=== PATIENT | male | born 1975 | race African-American/Black ===

== ENCOUNTER 2016-10-11 22:06 | Inpatient (IN) | payer SELFPAY ==
[~2016-10-11] VITALS: Ht 180.3 cm; Wt 128.0 kg
[~2016-10-11 22:06] MED LIST: CIPR-9 PO; IBUP800T23 PO; METR500T10 PO
[2016-10-11 22:07] VITALS: BP 172/83; PULSE 88; RESP 16; TEMP 99.3; O2SAT 99
--- NOTE | 2016-10-11 23:05 | PD ---
HPI Chief Complaint: Abdominal Pain Time Seen by Provider: 23:05 Travel History International Travel<30 days: No Contact w/Intl Traveler<30days: No Traveled to known affect area: No History of Present Illness HPI 41-year-old male came to the emergency room with history of right flank and right lower quadrant abdominal pain for past 2 weeks. Patient was very uncomfortable and was literally kneeling on the floor when I went to see him. He says his appetite has been down. He has this constant feeling to have a bowel movement but not much comes out. He has been diagnosed with diverticulitis in the past. No history of kidney stones. His vital signs were within acceptable limits. [facility] Past Medical History Narrative Medical List of his past medical, surgical, social and family history was reviewed from the nursing note. GERD: Yes (Feb 2016) Immunizations Current: Yes Tetanus Vaccination: < 5 Years Social History Alcohol Use: Yes (occas) Tobacco Use: Yes (vapor since november) Substance Use: No Allergies-Medications (Allergen,Severity, Reaction): Coded Allergies: No Known Allergies (Unverified , 10/11/16) Comments No known drug allergies. Reported Meds & Prescriptions Reported Meds & Active Scripts Active Narrative Medication List of his home medications reviewed from the nursing note. Review of Systems Except as stated in HPI: all other systems reviewed are Neg Physical Exam Narrative GENERAL: Awake, alert, significant distress SKIN: Focused skin assessment warm/dry. HEAD: Atraumatic. Normocephalic. EYES: Pupils equal and round. No scleral icterus. No injection or drainage. ENT: No nasal bleeding or discharge. Mucous membranes pink and moist. NECK: Trachea midline. No JVD. CARDIOVASCULAR: Regular rate and rhythm. No murmur appreciated. RESPIRATORY: No accessory muscle use. Clear to auscultation. Breath sounds equal bilaterally. GASTROINTESTINAL: Unable to examine his abdomen since patient was uncomfortable laying down. MUSCULOSKELETAL: No obvious deformities. No clubbing. No cyanosis. No edema. NEUROLOGICAL: Awake and alert. No obvious cranial nerve deficits. Motor grossly within normal limits. Normal speech. PSYCHIATRIC: Appropriate mood and affect; insight and judgment normal. Data Data Last Documented VS Vital Signs Date Time Temp Pulse Resp B/P Pulse Ox O2 Delivery O2 Flow Rate FiO2 10/11/16 22:07 99.3 88 16 172/83 99 Room Air Orders Complete Blood Count With Diff (10/11/16 23:13) Comprehensive Metabolic Panel (10/11/16 23:13) Lipase (10/11/16 23:13) Urinalysis - C+S If Indicated (10/11/16 23:) Ct Abd/Pel W/O Iv Contrast (10/11/16 23:13) Iv Access Insert/Monitor (10/11/16 23:13) Ecg Monitoring (10/11/16:) Oximetry (10/11/16:) Ondansetron Inj (Zofran Inj) (10/11/16 23:15) Sodium Chlor 0.9% 1000 Ml Inj (Ns 1000 M (10/11/16 23:13) Sodium Chloride 0.9% Flush (Ns Flush) (10/11/16 23:15) Morphine Inj (Morphine Inj) (10/11/16 23:15) Blood Culture (10/12/16 00:27) Ciprofloxacin 400 Mg Premix (Cipro 400 M (10/12/16 00:30) Metronidazole 500 Mg Inj (Flagyl 500 Mg (10/12/16 00:30) Admit Order (Ed Use Only) (10/12/16 00:47) Labs Laboratory Tests Test 10/11/16 23:25 White Blood Count 9.8 TH/MM3 Red Blood Count 4.30 MIL/MM3 Hemoglobin 13.0 GM/DL Hematocrit 38.7 % Mean Corpuscular Volume 90.0 FL Mean Corpuscular Hemoglobin 30.1 PG Mean Corpuscular Hemoglobin 33.5 % Concent Red Cell Distribution Width 13.3 % Platelet Count 239 TH/MM3 Mean Platelet Volume 9.2 FL Neutrophils (%) (Auto) 55.4 % Lymphocytes (%) (Auto) 34.1 % Monocytes (%) (Auto) 8.5 % Eosinophils (%) (Auto) 1.5 % Basophils (%) (Auto) 0.5 % Neutrophils # (Auto) 5.5 TH/MM3 Lymphocytes # (Auto) 3.4 TH/MM3 Monocytes # (Auto) 0.8 TH/MM3 Eosinophils # (Auto) 0.1 TH/MM3 Basophils # (Auto) 0.0 TH/MM3 CBC Comment DIFF FINAL Differential Comment Urine Color YELLOW Urine Turbidity CLEAR Urine pH 6.0 Urine Specific [place] 1.020 Urine Protein TRACE mg/dL Urine Glucose (UA) NEG mg/dL Urine Ketones NEG mg/dL Urine Occult Blood MOD Urine Nitrite NEG Urine Bilirubin NEG Urine Urobilinogen 2.0 MG/DL Urine Leukocyte Esterase NEG Urine RBC 14 /hpf Urine WBC 1 /hpf Urine Squamous Epithelial 1 /hpf Cells Urine Mucus FEW /lpf Microscopic Urinalysis Comment CULT NOT INDICATED Sodium Level 137 MEQ/L Potassium Level 3.6 MEQ/L Chloride Level 103 MEQ/L Carbon Dioxide Level 27.5 MEQ/L Anion Gap 7 MEQ/L Blood Urea Nitrogen 10 MG/DL Creatinine 1.13 MG/DL Estimat Glomerular Filtration 86 ML/MIN Rate Random Glucose 96 MG/DL Calcium Level 8.9 MG/DL Total Bilirubin 0.6 MG/DL Aspartate Amino Transf 19 U/L (AST/SGOT) Alanine Aminotransferase 26 U/L (ALT/SGPT) Alkaline Phosphatase 92 U/L Total Protein 8.0 GM/DL Albumin 3.4 GM/DL Lipase 81 U/L [facility] Medical Decision Making Medical Screen Exam Complete: Yes Emergency Medical Condition: Yes Medical Record Reviewed: Yes Differential Diagnosis Acute diverticulitis, renal colic, musculoskeletal pain, thoracic radiculopathy Narrative Course 12:45 AM blood test results of back and within acceptable limits. CT scan of his abdomen and pelvis is suggestive of acute diverticulitis with a small abscess. Patient was medicated for pain and IV fluid bolus given. Based on the CAT scan report I started him on IV ciprofloxacin and IV Flagyl. I have decided to admit him due to the abscess. I discussed this with the patient and his and they understand and agree. Procedures EKG Prior to Arrival: No Diagnosis Primary Impression: Acute diverticulitis Additional Impression: Colonic diverticular abscess Admitting Information Admitting Physician Requests: Admit Arnie Mccracken MD Oct 11, 2016 23:05 Admitting Physician Requests: it Arnie Mccracken MD Oct 11, 2016 23:05
[2016-10-11] MEDS ORDERED: SODIUM CHLOR 0.9% 1000 ML INJ 1,000 ML IV SCH (23:13)
[2016-10-11] MEDS ORDERED: MORPHINE SULFATE 8 MG/ML INJ IV PUSH ONE (23:15)
[2016-10-11] MEDS ORDERED: ONDANSETRON HCL 4 MG/2 ML VIAL IVP ONE (23:15)
[2016-10-11] MEDS ORDERED: SODIUM CHLORIDE 0.9% FLUSH 10 ML FLUSH IV FLUSH PRN (23:15)
[2016-10-11 23:52] LABS: BLOOD, URINE MOD (NEG); GLUCOSE,URINE NEG (NEG); KETONE, URINE NEG (NEG); MUCUS URINE FEW /lpf (OCC); NITRITE,URINE NEG (NEG); SQUAMOUS EPITHELIAL CELL URINE 1 /hpf (0-5); URINE COLOR YELLOW (YELLW/STRAW)
[2016-10-11 23:53] LABS: AUTOMATED NEUTROPHIL # 5.5 TH/MM3 (1.8-7.7); BASOPHIL % 0.5 % (0.0-2.0); EOSINOPHIL # 0.1 TH/MM3 (0-0.4); EOSINOPHIL % 1.5 % (0.0-4.0); HEMATOCRIT 38.7 % (39.0-51.0); HEMO FLAGS DIFF FINAL; LYMPH % 34.1 % (9.0-44.0); LYMPHOCYTE # 3.4 TH/MM3 (1.0-4.8); MEAN CORPUSCULAR HEMOGLOBIN 30.1 PG (27.0-34.0); MEAN CORPUSCULAR HGB CONC 33.5 % (32.0-36.0); MONO % 8.5 % (0.0-8.0); NEUT % 55.4 % (16.0-70.0); PLATELET COUNT 239 TH/MM3 (150-450); RED CELL DISTRIBUTION WIDTH 13.3 % (11.6-17.2); WHITE BLOOD COUNT 9.8 TH/MM3 (4.0-11.0)
[2016-10-11 23:56] LABS: COMMENT (UR) CULT NOT INDICATED; CULTURE IF INDICATED CULT NOT INDICATED
[2016-10-12] VITALS (8 sets, daily range): BP systolic 116–139; BP diastolic 62–71; PULSE 57–82; RESP 16–22; TEMP 97.2–98; O2SAT 92–99
[2016-10-12 00:07] LABS: ANION GAP 7 MEQ/L (5-15); AST (GOT) 19 U/L (15-37); BICARBONATE 27.5 MEQ/L (21.0-32.0); BLOOD UREA NITROGEN 10 MG/DL (7-18); CHLORIDE 103 MEQ/L (98-107); GLOMERULAR FILTRATION RATE 86 ML/MIN (>89); POTASSIUM 3.6 MEQ/L (3.5-5.1); SODIUM (NA) 137 MEQ/L (136-145)
[2016-10-12 00:08] LABS: ALT (GPT) 26 U/L (12-78)
[2016-10-12 00:10] LABS: ALKALINE PHOSPHATASE 92 U/L (45-117); TOTAL BILIRUBIN ADULT 0.6 MG/DL (0.2-1.0)
--- NOTE | 2016-10-12 00:16 | RADRPT ---
EXAM DATE/TIME: 10/11/2016 23:45 [place] COMPARISON: CT ABDOMEN & PELVIS W CONTRAST, March 02, 2016, 13:51. INDICATIONS : Low abdomen. ORAL CONTRAST: No oral contrast ingested. RADIATION DOSE: 22.40 CTDIvol (mGy) MEDICAL HISTORY : None SURGICAL HISTORY : None. ENCOUNTER: Initial ACUITY: 2 weeks PAIN SCALE: 8/10 LOCATION: Bilateral low abdomen TECHNIQUE: Volumetric scanning of the abdomen and pelvis was performed. Using automated exposure control and ad justment of the mA and/or kV according to patient size, radiation dose was kept as low as reasonably achievable to obtain optimal diagnostic quality images. DICOM format image data is available electro nically for review and comparison. FINDINGS: LOWER LUNGS: The visualized lower lungs are clear. LIVER: Homogeneous density without lesion. There is no dilation of the biliary tree. No calcified gallston es. SPLEEN: Normal size without lesion. PANCREAS: Within normal limits. KIDNEYS: Normal in size and shape. There is no mass, stone, or hydronephrosis. ADRENAL GLANDS: Within normal limits. VASCULAR: There is no aortic aneurysm. BOWEL/MESENTERY: High-grade diverticulitis seen at the level of the mid descending colon and with pericolonic inflamma tory changes involving the lateral margin of the adjacent left kidney. There is an approximately 16 x 24 x 23 mm intermediate signal intensity structure posterior to the descending colon seen on series 2 image 41 that on these noncontrast images I believe is a small developing fluid collection. It woul d not be safely drainable at this time. No free air is seen. ABDOMINAL WALL: Within normal limits. RETROPERITONEUM: There is no lymphadenopathy. BLADDER: No wall thickening or mass. REPRODUCTIVE: Within normal limits. INGUINAL: There is no lymphadenopathy or hernia. MUSCULOSKELETAL: Within normal limits for patient age. CONCLUSION: Severe acute diverticulitis at the level of the mid descending colon. Suspected small pericolonic abs cess developing, not drainable at this time. Medical management with close clinical surveillance narciso mmended. A followup CT of the abdomen and pelvis with intravenous and oral contrast is recommended in a few days, sooner if felt clinically indicated. The rest of the CT is within normal limits. Saravanan Ugalde MD on October 12, 2016 at 0:09 Board Certified Radiologist. This report was verified electronically.
[2016-10-12] MEDS ORDERED: metroNIDAZOLE 500 MG INJ 100 ML IV ONE (00:30)
[2016-10-12] MEDS ORDERED: CIPROFLOXACIN 400 MG PREMIX 200 ML IV ONE (00:30)
[2016-10-12] MEDS ORDERED: SODIUM CHLORIDE 0.9% FLUSH 10 ML FLUSH IV FLUSH PRN (01:00)
[2016-10-12] MEDS ORDERED: ONDANSETRON HCL 4 MG/2 ML VIAL IVP PRN (01:00)
[2016-10-12] MEDS ORDERED: NALOXONE HCL 0.4 MG/ML AMP IV PRN (01:00)
[2016-10-12] MEDS: SODIUM CHLOR 0.9% 1000 ML INJ 1,000 ML IV SCH ×4 (02:28→06:50)
--- NOTE | 2016-10-12 06:41 | HHI.HP ---
[facility] Service [facility] Primary Care Physician No Primary Care Physician Admission Diagnosis acute diverticulitis, diverticular abscess Diagnoses: Travel History International Travel<30 Days: No Contact w/Intl Traveler <30 Da: No Traveled to Known Affected Are: No History of Present Illness stomach pains for about 2 weeks, bilateral flank all the way to [facility] no fever no nausea no vomiting no diarrhea- but lose small stools no black or red color stool no blood in urine no buring or painj urination Review of Systems Except as stated in HPI: all other systems reviewed are Neg Past Family Social History Past Medical History diverticulosis Past Surgical History 1999 some kind of abdomen sx for a trauma when a big keigs of beer fell on abdomen Allergies: Coded Allergies: No Known Allergies (Unverified , 10/11/16) Family History mom- breast cancer , dm, htn, lipid dad- dm- diseased; htn, cva, Social History used to smoke cigarettes, quit about a year ago social drinker Physical Exam Vital Signs Vital Signs Date Time Temp Pulse Resp B/P Pulse Ox O2 Delivery O2 Flow Rate FiO2 10/12/16 02:44 68 16 116/67 99 Room Air 10/11/16 22:07 99.3 88 16 172/83 99 Room Air Physical Exam GENERAL: This is a well-nourished, well-developed patient, in no apparent distress. SKIN: No rashes, ecchymoses or lesions. Cool and dry. HEAD: Atraumatic. Normocephalic. No temporal or scalp tenderness. EYES: No scleral icterus. No injection or drainage. ENT: Nose without bleeding, purulent drainage or septal hematoma.Airway patent. NECK: Trachea midline. No JVD CARDIOVASCULAR: Regular rate and rhythm without murmurs, gallops, or rubs. RESPIRATORY: Clear to auscultation. Breath sounds equal bilaterally. No wheezes , rales, or rhonchi. GASTROINTESTINAL: Abdomen soft, tenderness diffusely at mid abdomen and epigastric, nondistended. . No guarding. MUSCULOSKELETAL: Extremities without clubbing, cyanosis, or edema. No calf tenderness. NEUROLOGICAL: Awake and alert. Motor and sensory grossly within normal limits. Normal speech. Laboratory Laboratory Tests Test 10/11/16 23:25 White Blood Count 9.8 Red Blood Count 4.30 Hemoglobin 13.0 Hematocrit 38.7 Mean Corpuscular Volume 90.0 Mean Corpuscular Hemoglobin 30.1 Mean Corpuscular Hemoglobin 33.5 Concent Red Cell Distribution Width 13.3 Platelet Count 239 Mean Platelet Volume 9.2 Neutrophils (%) (Auto) 55.4 Lymphocytes (%) (Auto) 34.1 Monocytes (%) (Auto) 8.5 Eosinophils (%) (Auto) 1.5 Basophils (%) (Auto) 0.5 Neutrophils # (Auto) 5.5 Lymphocytes # (Auto) 3.4 Monocytes # (Auto) 0.8 Eosinophils # (Auto) 0.1 Basophils # (Auto) 0.0 CBC Comment DIFF FINAL Differential Comment Urine Color YELLOW Urine Turbidity CLEAR Urine pH 6.0 Urine Specific [place] 1.020 Urine Protein TRACE Urine Glucose (UA) NEG Urine Ketones NEG Urine Occult Blood MOD Urine Nitrite NEG Urine Bilirubin NEG Urine Urobilinogen 2.0 Urine Leukocyte Esterase NEG Urine RBC 14 Urine WBC 1 Urine Squamous Epithelial 1 Cells Urine Mucus FEW Microscopic Urinalysis Comment CULT NOT INDICATED Sodium Level 137 Potassium Level 3.6 Chloride Level 103 Carbon Dioxide Level 27.5 Anion Gap 7 Blood Urea Nitrogen 10 Creatinine 1.13 Estimat Glomerular Filtration 86 Rate Random Glucose 96 Calcium Level 8.9 Total Bilirubin 0.6 Aspartate Amino Transf 19 (AST/SGOT) Alanine Aminotransferase 26 (ALT/SGPT) Alkaline Phosphatase 92 Total Protein 8.0 Albumin 3.4 Lipase 81 Date/Time Procedure Status Source Growth 10/12/16 00:46 Aerobic Blood Culture Received Blood Peripheral Pending 10/12/16 00:46 Anaerobic Blood Culture Received Blood Peripheral Pending Result Diagram: 10/11/16 2325 10/11/162324 Imaging Last 48 hours Impressions Abdomen/Pelvis CT 10/11/167 Signed Impressions: Service Date/Time: Tuesday, October 11, 2016 23:45 - CONCLUSION: Severe acute diverticulitis at the level of the mid descending colon. Suspected small pericolonic abscess developing, not drainable at this time. Medical management with close clinical surveillance recommended. A followup CT of the abdomen and pelvis with intravenous and oral contrast is recommended in a few days, sooner if felt clinically indicated. The rest of the CT is within normal limits. Saravanan Ugalde MD Assessment and Plan Assessment and Plan Impression: severe diverticulitis- with non drainable abscess on CT Plan: advance to clear liquid pain control with tramadol if pt can tolerate po, which he likely will, may be able to dc in pm iv cipro and flagyl for now case management to arrange for antibiotics, follow up clinic appointment so that he can get repeat ct in a few days/ week dvt prophylaxis with lovenox Discussed Condition With patient, ER MD, nursing staff Curry Matthew MD Oct 12, 2016 06:40
[2016-10-12] MEDS: metroNIDAZOLE 500 MG INJ 100 ML IV SCH ×3 (06:50→19:10)
[2016-10-12] MEDS ORDERED: traMADol HCL 50 MG TAB PO PRN (07:00)
[2016-10-12] MEDS: SODIUM CHLORIDE 0.9% FLUSH 10 ML FLUSH IV FLUSH SCH ×2 (09:00→20:43)
[2016-10-12] MEDS ORDERED: MORPHINE SULFATE 8 MG/ML INJ IV PUSH PRN (11:00)
[2016-10-12] MEDS: CIPROFLOXACIN 400 MG PREMIX 200 ML IV SCH ×2 (11:09→23:29)
--- NOTE | 2016-10-12 16:03 | HHI.PR ---
Addendum to Inpatient Note Addendum Reason: Additional Documentation Additional Information The pt complained of significant pain and pain meds were adjusted. He was continued on IV antibiotics and IVFs. He did OK on a clear liquid diet. If symptoms do not improve will consult GI vs GS. Will need repeat CT scan in a few days. Add PPI. Tremaine Friedman DO Oct 12, 2016 16:03
[2016-10-12] MEDS: PANTOPRAZOLE SODIUM 40 MG VIAL IV PUSH SCH (17:22)
[2016-10-12] MEDS: HYDROmorphone HCL PF 1 MG/ML VIAL IV PUSH PRN ×2 (17:24→20:47)
[2016-10-13] VITALS: BP 120/68; PULSE 90; RESP 20; TEMP 99.5; O2SAT 95
[2016-10-13] MEDS: metroNIDAZOLE 500 MG INJ 100 ML IV SCH ×3 (03:38→20:21)
[2016-10-13 04:00] VITALS: BP 129/70; PULSE 64; RESP 19; TEMP 97.7; O2SAT 95
[2016-10-13 05:41] LABS: AUTOMATED NEUTROPHIL # 4.1 TH/MM3 (1.8-7.7); BASOPHIL % 0.6 % (0.0-2.0); EOSINOPHIL # 0.2 TH/MM3 (0-0.4); EOSINOPHIL % 2.8 % (0.0-4.0); HEMATOCRIT 36.4 % (39.0-51.0); HEMO FLAGS DIFF FINAL; LYMPH % 32.3 % (9.0-44.0); LYMPHOCYTE # 2.4 TH/MM3 (1.0-4.8); MEAN CELL VOLUME 90.8 FL (80.0-100.0); MEAN CORPUSCULAR HEMOGLOBIN 30.1 PG (27.0-34.0); MEAN CORPUSCULAR HGB CONC 33.1 % (32.0-36.0); MONO % 9.2 % (0.0-8.0); NEUT % 55.1 % (16.0-70.0); PLATELET COUNT 254 TH/MM3 (150-450); RED BLOOD COUNT 4.01 MIL/MM3 (4.50-5.90); RED CELL DISTRIBUTION WIDTH 13.6 % (11.6-17.2); WHITE BLOOD COUNT 7.4 TH/MM3 (4.0-11.0)
[2016-10-13 06:08] LABS: BICARBONATE 29.8 MEQ/L (21.0-32.0); POTASSIUM 3.9 MEQ/L (3.5-5.1)
[2016-10-13] MEDS: SODIUM CHLOR 0.9% 1000 ML INJ 1,000 ML IV SCH ×2 (06:49→12:35)
[2016-10-13 08:00] VITALS: BP 127/60; PULSE 65; PULSE 70; RESP 18; TEMP 96.8; O2SAT 95
[2016-10-13] MEDS: SODIUM CHLORIDE 0.9% FLUSH 10 ML FLUSH IV FLUSH SCH ×2 (09:00→20:00)
[2016-10-13] MEDS: CIPROFLOXACIN 400 MG PREMIX 200 ML IV SCH ×2 (11:01→23:57)
[2016-10-13 12:00] VITALS: BP 146/72; PULSE 70; RESP 18; TEMP 97.4; O2SAT 96
[2016-10-13] MEDS: HYDROmorphone HCL PF 1 MG/ML VIAL IV PUSH PRN (12:34)
--- NOTE | 2016-10-13 15:24 | HHI.PR ---
Subjective Remarks The patient says his pain ranges from a 7 to a 9 out of 10. He says the pain medications only take the edge off. He is tolerating a clear liquid diet. He says he has had a bout of diverticulitis in February of last year. He had questions pertaining to walk out of the diet he should be on to avoid diverticulitis. He has been having gas but has not been having any bowel movements. Objective Vitals Vital Signs Date Time Temp Pulse Resp B/P Pulse Ox O2 Delivery O2 Flow Rate FiO2 10/13/16 12:00 97.4 70 18 146/72 96 10/13/16 12:00 97.4 70 18 146/72 96 10/13/16 08:00 96.8 70 18 127/60 95 10/13/16 08:00 65 10/13/16 04:00 97.7 64 19 129/70 95 10/13/16 00:00 99.5 90 20 120/68 95 10/12/16 22:00 68 10/12/16 20:00 97.5 72 22 129/69 92 10/12/16 16:00 98.0 67 17 139/71 96 I/O 10/12/16 10/12/16 10/12/16 10/13/16 10/13/16 10/13/16 07:00 15:00 23:00 07:00 15:00 23:00 Intake Total 312 ml 360 ml 966 ml 1171 ml 720 ml Balance 312 ml 360 ml 966 ml 1171 ml 720 ml Intake Oral 360 ml 480 ml 480 ml 720 ml IV Total 312 ml 486 ml 691 ml # Voids 2 1 2 4 # Bowel Movements 0 0 Result Diagram: 10/13/16 0345 10/13/16 0345 Imaging Last Impressions Abdomen/Pelvis CT 10/11/16 3333 Signed Impressions: Service Date/Time: Tuesday, October 11, 2016 23:45 - CONCLUSION: Severe acute diverticulitis at the level of the mid descending colon. Suspected small pericolonic abscess developing, not drainable at this time. Medical management with close clinical surveillance recommended. A followup CT of the abdomen and pelvis with intravenous and oral contrast is recommended in a few days, sooner if felt clinically indicated. The rest of the CT is within normal limits. Saravanan Ugalde MD Objective Remarks GENERAL: This is a well-nourished, well-developed patient, in no apparent distress. SKIN: No rashes, ecchymoses or lesions. Cool and dry. HEAD: Atraumatic. Normocephalic. No temporal or scalp tenderness. EYES: No scleral icterus. No injection or drainage. ENT: Nose without bleeding, purulent drainage or septal hematoma.Airway patent. NECK: Trachea midline. No JVD CARDIOVASCULAR: Regular rate and rhythm without murmurs, gallops, or rubs. RESPIRATORY: Clear to auscultation. Breath sounds equal bilaterally. No wheezes , rales, or rhonchi. GASTROINTESTINAL: Abdomen soft, tenderness on the left, nondistended. . No guarding. MUSCULOSKELETAL: Extremities without clubbing, cyanosis, or edema. No calf tenderness. NEUROLOGICAL: Awake and alert. Motor and sensory grossly within normal limits. Normal speech. PSYCH: Mood and affect appropriate. Medications and IVs Current Medications Medications (Trade) Dose Ordered Sig/Julio Route Start Time Stop Time Status Last Admin (NS 1000 ml Inj) 1,000 ml @ 100 mls/hr Q10H IV 10/12/16 00:49 10/13/16 12:35 (NS Flush) 2 ml UNSCH PRN IV FLUSH 10/12/16 01:00 (NS Flush) 2 ml BID IV FLUSH 10/12/16 09:00 (Zofran Inj) 4 mg Q6H PRN IVP 10/12/16 01:00 Naloxone HCl 0.4 mg 0.4 mg UNSCH PRN IV 10/12/16 01:00 (Cipro 400 Mg Premix) 200 ml @ 200 mls/hr Q12H IV 10/12/16 11:00 10/13/16 11:01 (Roxicodone) 5 mg Q4H PRN PO 10/12/16 11:00 Oxycodone HCl 10 mg 10 mg Q4H PRN PO 10/12/16 11:00 10/13/16 09:19 (Flagyl 500 Mg Inj) 100 ml @ 100 mls/hr Q8H IV 10/12/16 20:00 10/13/16 12:34 (Dilaudid Pf Inj) 0.5 mg Q4H PRN IV PUSH 10/12/16 15:15 10/13/16 12:34 (Protonix Inj) 40 mg Q24H IV PUSH 10/12/16 16:00 10/12/16 17:22 A/P Assessment and Plan Severe diverticulitis CT of the abdomen showed: severe acute diverticulitis at the level of the mid descending colon; Suspected small pericolonic abscess developing, not drainable at this time. Pain has not improved. He has had diverticulitis in February. - continue IV Cipro and Flagyl. - oral pain meds with IV Dilaudid for breakthrough. - antiemetics as needed. - IVFs. - clear liquid diet. - GI consult requested. - continue IV PPI. Anemia Likely dilutional. - monitor as needed. PPx: Lovenox Discharge Planning Awaiting clinical improvement. Tremaine Friedman DO Oct 13, 2016 15:24
[2016-10-13] MEDS: PANTOPRAZOLE SODIUM 40 MG VIAL IV PUSH SCH (15:27)
[2016-10-13 16:00] VITALS: BP 130/62; PULSE 58; RESP 18; TEMP 97.6; O2SAT 98
[2016-10-13] MEDS: SODIUM CHLORIDE 0.65% NASAL SPRAY 45 ML BTL EACH NARE PRN (17:45)
[2016-10-13] MEDS ORDERED: HYDROmorphone HCL PF 1 MG/ML VIAL IV PUSH PRN (19:15)
[2016-10-13 20:00] VITALS: BP 128/63; PULSE 66; RESP 18; TEMP 99.3; O2SAT 95
--- NOTE | 2016-10-13 20:33 | PD.CONS ---
HPI History of Present Illness This is a 41 year old male patient who has had 2 week history of severe LLQ crampy pain that he tried to manage as outpatient but eventually needed to come to hospital for pain relief. CT scan showed diverticulitis in descending colon with a possible small diverticular abscess. WBC has been normal and he is on Cipro and Flagyl. He denies any bloody stools. Not moving bowels since he came to hospital. He reports prior episode of diverticulitis in February last year. ROS: no headache, earache, sore throat, chest pain, sob, leg pain, fever. No rash. Otherwise complete ros is negative. []. PFSH Past Medical History diverticulosis Past Surgical History 1999 some kind of abdomen sx for a trauma when a big keg of beer fell on abdomen Coded Allergies: No Known Allergies (Unverified , 10/11/16) Medications Current Medications Medications (Trade) Dose Ordered Sig/Julio Route Start Time Stop Time Status Last Admin (NS 1000 ml Inj) 1,000 ml @ 100 mls/hr Q10H IV 10/12/16 00:49 10/13/16 12:35 (NS Flush) 2 ml UNSCH PRN IV FLUSH 10/12/16 01:00 (NS Flush) 2 ml BID IV FLUSH 10/12/16 09:00 (Zofran Inj) 4 mg Q6H PRN IVP 10/12/16 01:00 Naloxone HCl 0.4 mg 0.4 mg UNSCH PRN IV 10/12/16 01:00 (Cipro 400 Mg Premix) 200 ml @ 200 mls/hr Q12H IV 10/12/16 11:00 10/13/16 11:01 (Roxicodone) 5 mg Q4H PRN PO 10/12/16 11:00 Oxycodone HCl 10 mg 10 mg Q4H PRN PO 10/12/16 11:00 10/13/16 18:31 (Flagyl 500 Mg Inj) 100 ml @ 100 mls/hr Q8H IV 10/12/16 20:00 10/13/16 20:21 (Protonix Inj) 40 mg Q24H IV PUSH 10/12/16 16:00 10/13/16 15:27 (Dilaudid Pf Inj) 1 mg Q4H PRN IV PUSH 10/13/16 19:15 ([place]) 2 spray Q4H PRN EACH NARE 10/13/16 15:30 10/13/16 17:45 Family History mom- breast cancer , dm, htn, lipid dad- dm- diseased; htn, cva, Social History used to smoke cigarettes, quit about a year ago social drinker GI Exam Vitals I&O Vital Signs Date Time Temp Pulse Resp B/P Pulse Ox O2 Delivery O2 Flow Rate FiO2 10/13/16 20:00 99.3 66 18 128/63 95 10/13/16 16:00 97.6 58 18 130/62 98 10/13/16 12:00 97.4 70 18 146/72 96 10/13/16 12:00 97.4 70 18 146/72 96 10/13/16 08:00 96.8 70 18 127/60 95 10/13/16 08:00 65 10/13/16 04:00 97.7 64 19 129/70 95 10/13/16 00:00 99.5 90 20 120/68 95 10/12/16 22:00 68 I/O 10/12/16 10/12/16 10/12/16 10/13/16 10/13/16 10/13/16 07:00 15:00 23:00 07:00 15:00 23:00 Intake Total 312 ml 360 ml 966 ml 1171 ml 1559 ml Balance 312 ml 360 ml 966 ml 1171 ml 1559 ml Intake Oral 360 ml 480 ml 480 ml 720 ml IV Total 312 ml 486 ml 691 ml 839 ml # Voids 2 1 2 4 # Bowel Movements 0 0 Laboratory Test 10/13/16 03:45 White Blood Count 7.4 TH/MM3 Red Blood Count 4.01 MIL/MM3 Hemoglobin 12.1 GM/DL Hematocrit 36.4 % Mean Corpuscular Volume 90.8 FL Mean Corpuscular Hemoglobin 30.1 PG Mean Corpuscular Hemoglobin 33.1 % Concent Red Cell Distribution Width 13.6 % Platelet Count 254 TH/MM3 Mean Platelet Volume 9.1 FL Neutrophils (%) (Auto) 55.1 % Lymphocytes (%) (Auto) 32.3 % Monocytes (%) (Auto) 9.2 % Eosinophils (%) (Auto) 2.8 % Basophils (%) (Auto) 0.6 % Neutrophils # (Auto) 4.1 TH/MM3 Lymphocytes # (Auto) 2.4 TH/MM3 Monocytes # (Auto) 0.7 TH/MM3 Eosinophils # (Auto) 0.2 TH/MM3 Basophils # (Auto) 0.0 TH/MM3 CBC Comment DIFF FINAL Differential Comment Sodium Level 137 MEQ/L Potassium Level 3.9 MEQ/L Chloride Level 101 MEQ/L Carbon Dioxide Level 29.8 MEQ/L Anion Gap 6 MEQ/L Blood Urea Nitrogen 9 MG/DL Creatinine 1.21 MG/DL Estimat Glomerular Filtration 80 ML/MIN Rate Random Glucose 92 MG/DL Calcium Level 8.7 MG/DL Date/Time Procedure Status Source Growth 10/12/16 00:46 Aerobic Blood Culture - Preliminary Resulted Blood Peripheral NO GROWTH IN 1 DAY 10/12/16 00:46 Anaerobic Blood Culture - Preliminary Resulted Blood Peripheral NO GROWTH IN 1 DAY Physical Examination HEENT: Pupils round and reactive to light; normocephalic; atraumatic; no jaundice. Throat is clear. NECK: Neck is supple, no JVD, no lymphadenopathy. CHEST: Chest is clear to auscultation and percussion. CARDIAC: Regular rate and rhythm with no murmur gallop or rubs. ABDOMEN: Soft, nondistended, tender LLQ; no hepatosplenomegaly; bowel sounds are present in all four quadrants. EXTREMITIES: No clubbing, cyanosis, or edema. SKIN: Normal; no rash; no jaundice. RETINA SUBSPECIALIST: No focal deficits; alert and oriented times three. Assessment and Plan Plan Imp: Acute diverticulitis with possible early abscess on unenhanced CT Previous history of diverticulitis and altered bowel habits. Plan: Repeat CT scan abdomen and pelvis tomorrow with IV and PO contrast. Advised to take metamucil daily after discharge to prevent recurrent diverticulitis in the future. Andrea Kee MD Oct 13, 2016 20:33
[2016-10-14] VITALS: BP 122/64; PULSE 59; RESP 18; TEMP 97.5; O2SAT 96
[2016-10-14] MEDS: metroNIDAZOLE 500 MG INJ 100 ML IV SCH ×3 (03:23→21:45)
[2016-10-14] MEDS: SODIUM CHLOR 0.9% 1000 ML INJ 1,000 ML IV SCH ×3 (03:23→21:44)
[2016-10-14 04:00] VITALS: BP 115/55; PULSE 57; RESP 18; TEMP 97.8; O2SAT 95
[2016-10-14] MEDS ORDERED: DIATRIZOATE MEGLUM/DIATRIZOATE SOD 9 ML CUP PO ONE (07:45)
[2016-10-14 08:00] VITALS: BP 127/58; PULSE 52; RESP 18; TEMP 97.9; O2SAT 97
[2016-10-14] MEDS: SODIUM CHLORIDE 0.9% FLUSH 10 ML FLUSH IV FLUSH SCH ×2 (08:37→21:00)
[2016-10-14] MEDS: CIPROFLOXACIN 400 MG PREMIX 200 ML IV SCH ×2 (11:03→21:44)
[2016-10-14] MEDS ORDERED: OXYC-392 PO (11:07)
--- NOTE | 2016-10-14 11:12 | HHI.PR ---
Subjective Remarks The patient said that overall he was feeling better. He did say that he was tolerating his clear liquid diet without increased abdominal pain. He was expecting to get the CAT scan done soon. Discussed with nursing. Objective Vitals Vital Signs Date Time Temp Pulse Resp B/P Pulse Ox O2 Delivery O2 Flow Rate FiO2 10/14/16 08:00 97.9 52 18 127/58 97 10/14/16 04:00 97.8 57 18 115/55 95 10/14/16 00:57 18 10/14/16 00:00 97.5 59 18 122/64 96 10/13/16 20:00 99.3 66 18 128/63 95 10/13/16 16:00 97.6 58 18 130/62 98 10/13/16 12:00 97.4 70 18 146/72 96 10/13/16 12:00 97.4 70 18 146/72 96 I/O 10/13/16 10/13/16 10/13/16 10/14/16 10/14/16 10/14/16 07:00 15:00 23:00 07:00 15:00 23:00 Intake Total 1171 ml 1559 ml 420 ml 480 ml Balance 1171 ml 1559 ml 420 ml 480 ml Intake Oral 480 ml 720 ml 420 ml 480 ml IV Total 691 ml 839 ml # Voids 2 4 2 5 # Bowel Movements 0 0 0 Result Diagram: 10/13/16 0345 10/13/16 0345 Imaging Last Impressions Abdomen/Pelvis CT 10/11/16 2313 Signed Impressions: Service Date/Time: Tuesday, October 11, 2016 23:45 - CONCLUSION: Severe acute diverticulitis at the level of the mid descending colon. Suspected small pericolonic abscess developing, not drainable at this time. Medical management with close clinical surveillance recommended. A followup CT of the abdomen and pelvis with intravenous and oral contrast is recommended in a few days, sooner if felt clinically indicated. The rest of the CT is within normal limits. Saravanan Ugalde MD Objective Remarks GENERAL: This is a well-nourished, well-developed patient, in no apparent distress. SKIN: No rashes, ecchymoses or lesions. Cool and dry. HEAD: Atraumatic. Normocephalic. No temporal or scalp tenderness. EYES: No scleral icterus. No injection or drainage. ENT: Nose without bleeding, purulent drainage or septal hematoma.Airway patent. NECK: Trachea midline. No JVD CARDIOVASCULAR: Regular rate and rhythm without murmurs, gallops, or rubs. RESPIRATORY: Clear to auscultation. Breath sounds equal bilaterally. No wheezes , rales, or rhonchi. GASTROINTESTINAL: Abdomen soft, tenderness on the left, nondistended. No guarding. MUSCULOSKELETAL: Extremities without clubbing, cyanosis, or edema. No calf tenderness. NEUROLOGICAL: Awake and alert. Motor and sensory grossly within normal limits. Normal speech. PSYCH: Mood and affect appropriate. Medications and IVs Current Medications Medications (Trade) Dose Ordered Sig/Julio Route Start Time Stop Time Status Last Admin (NS 1000 ml Inj) 1,000 ml @ 100 mls/hr Q10H IV 10/12/16 00:49 10/14/16 11:03 (NS Flush) 2 ml UNSCH PRN IV FLUSH 10/12/16 01:00 (NS Flush) 2 ml BID IV FLUSH 10/12/16 09:00 (Zofran Inj) 4 mg Q6H PRN IVP 10/12/16 01:00 Naloxone HCl 0.4 mg 0.4 mg UNSCH PRN IV 10/12/16 01:00 (Cipro 400 Mg Premix) 200 ml @ 200 mls/hr Q12H IV 10/12/16 11:00 10/14/16 11:03 (Roxicodone) 5 mg Q4H PRN PO 10/12/16 11:00 Oxycodone HCl 10 mg 10 mg Q4H PRN PO 10/12/16 11:00 10/14/16 08:40 (Flagyl 500 Mg Inj) 100 ml @ 100 mls/hr Q8H IV 10/12/16 20:00 10/14/16 11:03 (Protonix Inj) 40 mg Q24H IV PUSH 10/12/16 16:00 10/13/16 15:27 (Inkom Robinson [place]) 2 spray Q4H PRN EACH NARE 10/13/16 15:30 10/13/16 17:45 (Flonase Robinson Spr) 2 spray DAILY EACH NARE 10/14/16 11:15 (Dilaudid Pf Inj) 0.5 mg Q4H PRN IV PUSH 10/14/16 11:15 A/P Assessment and Plan Severe diverticulitis CT of the abdomen showed: severe acute diverticulitis at the level of the mid descending colon; Suspected small pericolonic abscess developing, not drainable at this time. Pain has not improved. He has had diverticulitis in February. Appreciate GI consultation. - continue IV Cipro and Flagyl. - oral pain meds with IV Dilaudid for breakthrough. - antiemetics as needed. - IVFs. - clear liquid diet. - repeat CT per GI. - continue IV PPI. Anemia Likely dilutional. - monitor as needed. PPx: Lovenox Discharge Planning Awaiting repeat CT. Possible d/c later today or tomorrow. Tremaine Friedman DO Oct 14, 2016 11:12
[2016-10-14] MEDS ORDERED: HYDROmorphone HCL PF 1 MG/ML VIAL IV PUSH PRN (11:15)
[2016-10-14 12:00] VITALS: BP 146/68; PULSE 52; RESP 18; TEMP 95.9; O2SAT 98
[2016-10-14] MEDS ORDERED: IOHEXOL 350 MG/ML 10 ML VIAL (for RAD DIAG) IV ONE (14:31)
--- NOTE | 2016-10-14 14:55 | RADRPT ---
EXAM DATE/TIME: 10/14/2016 14:16 [facility] COMPARISON: CT ABDOMEN & PELVIS W/O CONTRAST, October 11, 2016, 23:45. INDICATIONS : Evaluate for diffuse abdominal pain. IV CONTRAST: 85 cc Omnipaque 350 (iohexol) IV ORAL CONTRAST: Prescribed oral contrast ingested. RADIATION DOSE: 16.77 CTDIvol (mGy) MEDICAL HISTORY : Diverticulitis. SURGICAL HISTORY : None. ENCOUNTER: Initial ACUITY: 1 day PAIN SCALE: 9/10 LOCATION: Bilateral lower quadrant TECHNIQUE: Volumetric scanning of the abdomen and pelvis was performed. Using automated exposure control and ad justment of the mA and/or kV according to patient size, radiation dose was kept as low as reasonably achievable to obtain optimal diagnostic quality images. DICOM format image data is available electro nically for review and comparison. FINDINGS: CT Abdomen: The previously seen diverticulitis involving descending colon which involves almost 4.4 c m of the colonic wall has not changed with extension of the inflammatory process into the Gerota's fa scia on the left side and part of the inflammatory process appears nodular, however there is no evide nce for abscess at this time. The liver, spleen, pancreas, kidneys, adrenals are unremarkable. There is no evidence for any appreciable pathological adenopathy, free fluid, or bowel obstruction. CT pelvis: There is no evidence for mass, abscess formation, or any significant adenopathy within the pelvis. The prostate gland is inhomogeneous and measures 3.2 x 4.1 cm in AP and transverse diameters and nonspecific. CONCLUSION: No appreciable change in descending colon acute diverticulitis. Cee Angel MD on October 14, 2016 at 14:48 Board Certified Radiologist. This report was verified electronically.
[2016-10-14 16:00] VITALS: BP 145/69; PULSE 50; RESP 18; TEMP 96.3; O2SAT 100
--- NOTE | 2016-10-14 16:43 | HHI.GIFU ---
Subjective Remarks Pt sitting in bed, on phone. NO new complaints pain the same. No BM. Objective Vitals I&O Vital Signs Date Time Temp Pulse Resp B/P Pulse Ox O2 Delivery O2 Flow Rate FiO2 10/14/16 16:00 96.3 50 18 145/69 100 10/14/16 12:00 95.9 52 18 146/68 98 10/14/16 08:00 97.9 52 18 127/58 97 10/14/16 04:00 97.8 57 18 115/55 95 10/14/16 00:57 18 10/14/16 00:00 97.5 59 18 122/64 96 10/13/16 20:00 99.3 66 18 128/63 95 I/O 10/13/16 10/13/16 10/13/16 10/14/16 10/14/16 10/14/16 06:59 14:59 22:59 06:59 14:59 22:59 Intake Total 1171 ml 1559 ml 420 ml 480 ml 440 ml Balance 1171 ml 1559 ml 420 ml 480 ml 440 ml Intake Oral 480 ml 720 ml 420 ml 480 ml 440 ml IV Total 691 ml 839 ml # Voids 2 4 2 5 4 # Bowel Movements 0 0 0 0 Laboratory Date/Time Procedure Status Source Growth 10/12/16 00:46 Aerobic Blood Culture - Preliminary Resulted Blood Peripheral NO GROWTH IN 2 DAYS 10/12/16 00:46 Anaerobic Blood Culture - Preliminary Resulted Blood Peripheral NO GROWTH IN 2 DAYS Imaging Last Impressions Abdomen/Pelvis CT 10/14/16 0000 Signed Impressions: Service Date/Time: October 14:16 - CONCLUSION: No appreciable change in descending colon acute diverticulitis. Cee Angel MD Physical Exam HEENT: PERRL; normocephalic; atraumatic; no jaundice. CHEST: CTA CARDIAC: RRR ABDOMEN: Soft, nondistended, LLQ TTP; no hepatosplenomegaly; bowel sounds are present in all four quadrants. EXTREMITIES: No clubbing, cyanosis, or edema. SKIN: Normal; no rash; no jaundice. [employer] HEL[employer]: No focal deficits; alert and oriented times three. Assessment and Plan Plan ASSESSMENT - Acute diverticulitis with possible early abscess on unenhanced CT .Previous history of diverticulitis and altered bowel habits. repeat CT 10-14-16--> no appreciable change in descending colon acute diverticulitis, no evidence for abscess at this time Plan: - reg diet - miralax BID - supportive care - metamucil after improvement to prevent future attacks diverticulitis This pt seen by myself and Dr Kee and this note is written on his behalf Dayana Vallejo Oct 14, 2016 16:43
[2016-10-14] MEDS: SENNOSIDES 8.6 MG TAB PO SCH (17:06)
[2016-10-14] MEDS: FLUTICASONE PROPIONATE 50 MCG/ACT 16 GM NASAL SPRAY EACH NARE SCH (17:15)
[2016-10-14] MEDS: PANTOPRAZOLE SODIUM 40 MG VIAL IV PUSH SCH (17:16)
[2016-10-14 20:00] VITALS: BP 150/69; PULSE 53; RESP 20; TEMP 97.2; O2SAT 98
[2016-10-14] MEDS: POLYETHYLENE GLYCOL 17 GM PKG PO SCH (21:00)
[2016-10-14] MEDS: DOCUSATE SODIUM 100 MG CAP PO SCH (21:45)
[2016-10-15] VITALS: BP 134/63; PULSE 57; RESP 20; TEMP 97.1; O2SAT 97
[2016-10-15] MEDS: metroNIDAZOLE 500 MG INJ 100 ML IV SCH (03:05)
[2016-10-15 04:00] VITALS: BP 126/73; PULSE 47; RESP 18; TEMP 96.4; O2SAT 98
[2016-10-15 08:00] VITALS: BP 134/63; PULSE 46; RESP 17; TEMP 96.9; O2SAT 97
[2016-10-15] MEDS: SODIUM CHLOR 0.9% 1000 ML INJ 1,000 ML IV SCH (08:46)
[2016-10-15] MEDS: SODIUM CHLORIDE 0.65% NASAL SPRAY 45 ML BTL EACH NARE PRN (08:47)
[2016-10-15] MEDS: SODIUM CHLORIDE 0.9% FLUSH 10 ML FLUSH IV FLUSH SCH (08:48)
[2016-10-15] MEDS: DOCUSATE SODIUM 100 MG CAP PO SCH (08:48)
[2016-10-15] MEDS: FLUTICASONE PROPIONATE 50 MCG/ACT 16 GM NASAL SPRAY EACH NARE SCH (08:48)
[2016-10-15] MEDS: POLYETHYLENE GLYCOL 17 GM PKG PO SCH (08:48)
[2016-10-15] MEDS: SENNOSIDES 8.6 MG TAB PO SCH (08:49)
[2016-10-15] MEDS ORDERED: CIPR500T2 PO (10:29)
[2016-10-15] MEDS ORDERED: METR-1 PO (10:29)
--- NOTE | 2016-10-15 10:31 | HHI.DCPOC ---
Discharge Care Plan Diagnosis: (1) Acute diverticulitis (2) Colonic diverticular abscess Goals to Promote Your Health * To prevent worsening of your condition and complications * To maintain your health at the optimal level Directions to Meet Your Goals Take your medications as prescribed Follow your dietary instruction Follow activity as directed Keep your appointments as scheduled Take your immunizations and boosters as scheduled If your symptoms worsen call your PCP, if no PCP go to Urgent Care Center or Emergency Room Smoking is Dangerous to Your Health. Avoid second hand smoke Call the 24-hour hour crisis hotline for domestic abuse at Tremaine Friedman DO Oct 15, 2016 10:31
--- NOTE | 2016-10-15 10:38 | HHI.DS ---
Discharge Summary Admission Date Oct 12, 2016 at 16:00 Discharge Date: Oct 15, 2016 Admitting Diagnosis acute diverticulitis, diverticular abscess (1) Acute diverticulitis ICD Code: K57.92 Diagnosis: Principal (2) Colonic diverticular abscess ICD Code: K57.20 Procedures None Brief History - From Admission stomach pains for about 2 weeks, bilateral flank all the way to [facility] no fever no nausea no vomiting no diarrhea- but lose small stools no black or red color stool no blood in urine no buring or painj urination CBC/BMP: 10/13/16 0345 10/13/16 0345 Significant Findings Laboratory Tests Test 10/13/16 03:45 Red Blood Count 4.01 MIL/MM3 (4.50-5.90) Hemoglobin 12.1 GM/DL (13.0-17.0) Hematocrit 36.4 % (39.0-51.0) Monocytes (%) (Auto) 9.2 % (0.0-8.0) Estimat Glomerular Filtration 80 ML/MIN (>89) Rate Imaging Last Impressions Abdomen/Pelvis CT 10/14/16 0000 Signed Impressions: Service Date/Time: , October 14, 2016 14:16 - CONCLUSION: No appreciable change in descending colon acute diverticulitis. Cee Angel MD PE at Discharge GENERAL: This is a well-nourished, well-developed patient, in no apparent distress. SKIN: No rashes, ecchymoses or lesions. Cool and dry. HEAD: Atraumatic. Normocephalic. No temporal or scalp tenderness. EYES: No scleral icterus. No injection or drainage. ENT: Nose without bleeding, purulent drainage or septal hematoma.Airway patent. NECK: Trachea midline. No JVD CARDIOVASCULAR: Regular rate and rhythm without murmurs, gallops, or rubs. RESPIRATORY: Clear to auscultation. Breath sounds equal bilaterally. No wheezes , rales, or rhonchi. GASTROINTESTINAL: Abdomen soft, tenderness on the left, nondistended. No guarding. MUSCULOSKELETAL: Extremities without clubbing, cyanosis, or edema. No calf tenderness. NEUROLOGICAL: Awake and alert. Motor and sensory grossly within normal limits. Normal speech. PSYCH: Mood and affect appropriate. Pt update on day of discharge The pt said his pain has improved. He was tolerating a diet. He had a bowel movement, no blood was noted. Breathing comfortably. Discussed with nursing and GI. Hospital Course Severe diverticulitis CT of the abdomen showed: severe acute diverticulitis at the level of the mid descending colon; Suspected small pericolonic abscess developing, not drainable at this time. Pain has not improved. He has also had diverticulitis in February of last year. GI was consulted. He was continued on IV Cipro and Flagyl. He will complete a 10 day course of antibiotics. He received oral pain meds with IV Dilaudid for breakthrough. He received antiemetics as needed. He received IVFs and a PPI. Repeat CT without evidence for abscess. He was starte on a clear liquid diet, which was advanced to a low residue diet. He will follow up with GI as an outpt. He will need a colonoscopy. He should take Metamucil and adhere to a diverticulitis diet. Pt Condition on Discharge: Good Discharge Disposition: Discharge Home Discharge Time: <= 30 minutes Discharge Instructions DIET: Follow Instructions for: Diverticulitis Diet, Low Residue Diet Activities you can perform: Weight Bearing as Joel Follow up Referrals: Gastroenterology - 2 Weeks @ [facility] G[facility]enterology - 2 Weeks @ [facility] with Andrea Kee MD PCP Follow-up - 1 Week New Medications: Ciprofloxacin (Ciprofloxacin) 500 Mg Tab 500 MG PO BID Infection #14 Ref 0 TAB Metronidazole (Flagyl) 500 Mg Tab 500 MG PO TID Infection #21 Ref 0 TAB Oxycodone (Oxycodone) 5 Mg Tab 5 MG PO Q4H PRN pain #20 TAB Tremaine Friedman DO Oct 15, 2016 10:38
[2016-10-15 10:56] VITALS: PULSE 52
[2016-10-15] MEDS ORDERED: metroNIDAZOLE 500 MG TAB PO SCH (14:00)
[2016-10-15] MEDS ORDERED: CIPROFLOXACIN 500 MG TAB PO SCH (21:00)
== END 2016-10-15 11:37 | disposition home or self-care (01) | DRG 392 ==
LOC: NEPE 22:06 → NEDA 10-12 00:48 → INTOOBSV 10-12 00:48 → N07A 10-12 06:26 → OBSVTOIN 10-12 16:00
PROVIDERS: ADMIT Hospitalist; ATTEND Hospitalist
DX: K57.20 Diverticulitis of large intestine with perforation and abscess without bleeding (principal); F17.290 Nicotine dependence, other tobacco product, uncomplicated; K21.9 Gastro-esophageal reflux disease without esophagitis
CPT/HCPCS: 74176; 74177; 80048; 80053; 81001; 83690; 85025; 87040; 96374; 96375; C9113; J0744; J1170; J2270; J2405; J7030; Q9963; Q9967

== ENCOUNTER 2016-12-19 03:03 | Emergency (ER) | payer OTHER ==
[~2016-12-19] VITALS: Ht 182.9 cm; Wt 125.0 kg
[~2016-12-19 03:03] MED LIST changes: -CIPR-9 PO; +CIPR500T2 PO; -IBUP800T23 PO; +METR-1 PO; -METR500T10 PO; +OXYC-392 PO
[2016-12-19 03:05] VITALS: BP 145/71; PULSE 84; RESP 16; TEMP 98.3; O2SAT 97
[2016-12-19] MEDS ORDERED: ACETAMINOPHEN/HYDROcodone 325 MG/5 MG TAB PO ONE (03:30)
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
[2016-12-19] MEDS ORDERED: NAPR500T PO (04:30)
== END 2016-12-19 05:00 | disposition home or self-care (01) ==
LOC: NEPC 03:03
DX: S93.401A Sprain of unspecified ligament of right ankle, initial encounter (principal); M79.671 Pain in right foot; V03.00XA Pedestrian on foot injured in collision with car, pick-up truck or van in nontraffic accident, initial encounter; Y93.01 Activity, walking, marching and hiking
CPT/HCPCS: 73590; 73610; 73630; 99283